=== PATIENT | female | born 1980 | race Caucasian/White ===

== ENCOUNTER → 2023-09-20 17:13 | Outpatient (REF) | payer OTHER, SELFPAY | LOC: WDC 17:13 | PROVIDERS: ATTENDING PHYSICIAN Nurse Practitioner | DX: Z12.31 Encounter for screening mammogram for malignant neoplasm of breast (principal) | CPT/HCPCS: 77063; 77067 ==

== ENCOUNTER 2024-03-13 18:04 | Emergency (ER) | payer OTHER, SELFPAY ==
[2024-03-13 18:05] VITALS: BP 197/110
[2024-03-13 19:00] LABS: % Basophils 0.9 % (0-2); % Eosinophils 1.6 % (0-6); % Immature Granulocytes 0.2 % (0-0.5); % Lymphocytes 36.2 % (20.5-51.1); % Monocytes 7.1 % (1.7-9.3); Absolute Basophils 0.1 10^3/uL (0-0.2); Absolute Eosinophils 0.1 10^3/uL (0-0.7); Absolute Monocytes 0.4 10^3/uL (0.1-0.6); Absolute Neutrophils 3.1 10^3/uL (1.4-6.5); Hematocrit 35.7 % (37.0-47.0); Hemoglobin 12.6 g/dL (12.0-16.0); Mean Corp Hgb Conc. 35.3 g/dL (33.0-37.0); Mean Corpuscular Volume 87.7 fL (81.0-99.0); Mean Platelet Volume 11.6 fL (7.4-10.4); Nucleated Red Blood Cells % 0 %; Platelet Count 223 10^3/uL (130-400); Red Blood Cell Count 4.07 10^6/uL (4.20-5.40); Red Cell Dist. Width 12.3 % (11.5-14.5); White Blood Cell Count 5.6 10^3/uL (4.8-10.8)
[2024-03-13 19:06] LABS: Urine Albumin Trace (Neg - Trace); Urine Bilirubin Negative (Negative); Urine Character Clear (Clear); Urine Color Yellow; Urine Glucose Negative (Negative); Urine Ketone Negative (Negative); Urine Leukocyte 1+ (Negative); Urine Nitrite Negative (Negative); Urine Occult Blood 1+ (Negative); Urine Urobilinogen Negative (Neg - 1+)
[2024-03-13 19:07] LABS: ALT (SGPT) 11 U/L (0-35); AST (SGOT) 21 U/L (14-36); Albumin 4.1 g/dl (3.5-5.0); Alkaline Phosphatase 58 U/L (38-126); Blood Urea Nitrogen 13 mg/dl (7-17); Calcium 9.2 mg/dl (8.4-10.2); Carbon Dioxide 24 mmol/L (22-30); Chloride 105 mmol/L (98-107); Glucose 141 mg/dl (70-99); Potassium 3.7 mmol/L (3.5-5.1); Sodium 141 mmol/L (135-145); Total Bilirubin 0.3 mg/dl (0.2-1.3); Total Protein 6.9 g/dl (6.3-8.2); eGFR > 60.00
[2024-03-13 19:15] VITALS: BP 147/71
[2024-03-13 19:17] LABS: Urine Squamous Cell >30 /LPF (Few)
[2024-03-13] MEDS: TORADOL 30 MG IV (19:48)
[2024-03-13 19:59] VITALS: BMI 26.7
[2024-03-13 20:00] VITALS: BP 154/91
--- NOTE | 2024-03-13 20:01 | ED.GENMED ---
History of Present Illness
General
Chief Complaint: Abdominal Symptoms
Source: patient
Exam Limitations: none
Time Seen by Provider: 03/13/24 19:11
Nursing documentation reviewed up to this point in time: agreed with
History of Present Illness
History of Present Illness:
The patient is a 44-year-old female who reports that she was in the shower and suddenly felt a pop in her lower abdomen. Patient reports significant discomfort across her lower abdomen. She denies nausea, vomiting, diarrhea and constipation.
Patient reports that the pain initially was so bad she felt short of breath, however, now she no longer feels short of breath. She denies any chest pain or leg swelling.
Past History
Past History
ED Past Medical History: None
ED Past Surgical History: Appendectomy
Social History
Tobacco: Non-smoker
Alcohol: None
Drug: None
Personal:
Living: with family
Employment: Other
Family History
Family History: Other
Review of Systems
Review of Systems
Allergies reviewed?: Yes
All Other Systems: ROS reviewed and negative except as documented in HPI and ROS
Constitutional: Reports no symptoms
EENT: Reports no symptoms
Respiratory: Reports no symptoms
Cardiac: Reports no symptoms
ABD/GI: Reports abdominal pain
Musculoskeletal: Reports no symptoms
Skin: Reports no symptoms
Neurological: Reports no symptoms
Endocrine: Reports no symptoms
Hematologic/Lymphatic: Reports no symptoms
Psychiatric: Reports no symptoms
Phy Exam
Physical Exam
Physical Exam:
Physical Exam
General: no apparent distress, not acutely ill
Neck: supple. no meningeal signs. normal psoterior pharynx
Heart: s1/s2 regular rate and rhythm, no murmur. equal radial pulses.
Lungs: no acute respiratory distress. clear bilaterally
Abdomen: Abdomen is soft. Normal bowel sounds. Mild lower abdominal tenderness. No rebound or guarding. No pulsatile mass
Neuro: alert and oriented. no focal neurological deficits
Skin: no rash
Psychiatric: well kept. interactive and cooperative
Extremities: no edema. no calf tenderness. negative homans. good distal pulses
Course
Orders/Labs/Results
Orders:
Orders
03/13/24 18:31
CMP [Comprehensive Metabolic Panel] Urgent
Complete Blood Count/With Diff Urgent
HCG, Serum Qualitative Screen Urgent
Comment: ADDON
Urinalysis Reflex To Culture Urgent
Date Specimen was Collected: 03/13/24
Time Specimen was Collected: 18:10
Urine Microscopic Reflex Cult Urgent
Urine Culture Urgent
DEMETRIO Source: U
Specimen Description:
Date Specimen was Collected: 03/13/24
Time Specimen was Collected: 18:10
03/13/24 19:38
CT Abd/pelvis W Iv Cont Urgent
Comment:
Reason For Exam: sudden onset lower abdominal pain
Ketorolac [Toradol] 30 mg IV NOW STA
03/13/24 19:39
Add On- LAB Urgent
Tests Added?: serum beta HCG qualitative
03/13/24 21:29
Acetaminophen [Tylenol] 1,000 mg PO NOW STA
Abnormal Lab Results
03/13/24
18:31
RBC 4.07 L 10^6/uL
(4.20-5.40)
Hct 35.7 L %
(37.0-47.0)
MPV 11.6 H fL
(7.4-10.4)
Glucose 141 H mg/dl
(70-99)
Ur Occult Blood Reflex 1+ A
(Negative)
Leukocyte Esterase Rfl 1+ A
(Negative)
Urine RBC 3-6 A /HPF
(0-2)
03/13/24 18:31
03/13/24 18:31
Vital Signs
Initial and Last Documented VS:
Initial Vital Signs
Temp Pulse Resp BP Pulse Ox
99.1 F 88 18 197/110 99
03/13/24 18:05 03/13/24 18:05 03/13/24 18:05 03/13/24 18:05 03/13/24 18:05
Last Documented Vital Signs
Temp Pulse Resp BP Pulse Ox
99.1 F 88 18 147/71 100
03/13/24 18:05 03/13/24 18:05 03/13/24 18:05 03/13/24 19:15 03/13/24 20:02
MDM/Problems Addressed
Differential Diagnosis Includes:
Ruptured ovarian cyst, acute diverticulitis, perforated bowel
MDM/Problems Addressed:
Patient presents with acute lower abdominal pain
Chronic conditions affecting care: Previous abdomnial surgery
Acute Exacerbation and/or Progression of Chronic Illness:
Patient is acutely hypertensive, likely due to pain and anxiety
Acute Exacerbation and/or Progression of Chronic Illness: HTN
*Radiology
Radiology exam reviewed: radiology read reviewed
*Pulse Oximetry
Patient hypoxic: no
*EKG
Interpreted by ED Provider?: NA
*Forging Roll Operator Interpretation
Rate: normal
Interpretation: normal
Rhythm: sinus
*Critical Care Note
Total Time (30-74mins, 75-104mins- exclusive of procedures): Not Applicable
Data Reviewed
Source: patient
Patient Management
Social determinants of health affecting care: Living situation and Poor social support
Escalation/DeEscalation of care consider admission/obs:
Patient remains well-appearing. Patient appears more comfortable after getting Toradol and states she feels much better. I called radiology to discuss results and radiologist did say it is possible she could have ruptured an ovarian cyst, which
sounds typical from her history. Constipation was mentioned on CT report, however, patient reports she is having good bowel movements and had a BM today
Patient instructed to father investigative research specialist if pain persists.
ED Attending Note
-
Portions of this chart may have been created with voice recognition software.� Occasional wrong word or��sound alike� substitutions may have occurred due to the inherent limitations of voice recognition software.
Discharge Plan
Departure
Patient Disposition: Home (Routine Discharge)
Date of Disposition: 03/13/24
Time of Disposition: 21:30
Patient with high blood pressure during this ER visit?: Yes
Condition: Good
Covid-19: Not Applicable
Discharge Problem:
Pelvic pain
Instructions: Pelvic Pain ED
Prescriptions:
New
ketorolac 10 mg tablet
10 mg PO TID PRN (Reason: Pain) Qty: 10 0RF
Rx Instructions:
maximum total duration of 5 days from all oral, intranasal, or parenteral formulations
Referrals:
Christie Mckeon CRNP [Family Provider] -
Activity Restrictions/Additional Instructions:
If your pain continues after 3 more days, please contact your investigative research specialist. Take the Toradol every 8 hours as needed for pain. Along with the Toradol, you can also take 1000 mg of Tylenol every 6 hours.
Interventions
Interventions:
*Risk Screen - Suicide Last Done: 03/13/24 19:59
*General Assessment Last Done: 03/13/24 19:59
*Neglect/Abuse Screening Last Done: 03/13/24 19:59
ED- Fall Risk Assessment Last Done: 03/13/24 19:59
LX-Wguhco-Pxudlfcivg Assessment Last Done: 03/13/24 19:59
Discharge Date and Time
Print Language: YORUBA
[2024-03-13 20:13] LABS: HCG, Serum Qualitative Screen Negative
[2024-03-13] MEDS: TYLENOL 1000 MG PO (21:38)
== END 2024-03-13 21:45 | disposition home or self-care (01) ==
LOC: EMR 18:04
PROVIDERS: EMERGENCY PHYSICIAN Emergency Medicine; FAMILY PHYSICIAN Nurse Practitioner
DX: R10.2 Pelvic and perineal pain (principal); I10 Essential (primary) hypertension
CPT/HCPCS: 99285; 96374; 74177; 80053; 81003; 81015; 84703; 85025; 87086; Q9967

== ENCOUNTER → 2024-09-24 16:58 | Outpatient (REF) | payer OTHER, SELFPAY | LOC: WDC 16:58 | PROVIDERS: ATTENDING PHYSICIAN Nurse Practitioner | DX: Z12.31 Encounter for screening mammogram for malignant neoplasm of breast (principal) | CPT/HCPCS: 77063; 77067 ==